=== PATIENT | female | born 1950 | race Caucasian/White ===

== ENCOUNTER 2016-12-09 09:51 | Outpatient (CLI) | payer MEDICARE, BC ==
[~2016-12-09] VITALS: Ht 165.1 cm; Wt 80.9 kg
[~2016-12-09 09:51] MED LIST: LEVOXYL0.125 MG PO; NOVOLOG 100U100 U/M1 SQ; TRESIBA FL100 UNIT/1 SQ; VITAMIN D31000 IU PO; ZESTRIL 5MG5 MG PO; ZOCOR 20MG20 MG PO
[2016-12-09 10:33] VITALS: BP 107/57; PULSE 80; TEMP 98.3
[2016-12-09] MEDS ORDERED: SYNTHROID0.112 MG/T PO (11:12)
== END 2016-12-09 11:20 | disposition home or self-care (01) ==
LOC: EUO 09:51
DX: M81.0 Age-related osteoporosis without current pathological fracture (principal)
CPT/HCPCS: J3489

== ENCOUNTER → 2017-06-04 | Outpatient (CLI) | payer MEDICARE, BC ==
[~2017-06-04] MED LIST changes: +SYNTHROID0.112 MG/T PO
== END ==
LOC: MC.RAD 10:01
DX: Z12.31 Encounter for screening mammogram for malignant neoplasm of breast (principal)

== ENCOUNTER 2017-12-24 14:56 | Outpatient (CLI) | payer MEDICARE, BC ==
[~2017-12-24] VITALS: Ht 165.1 cm; Wt 81.0 kg
[2017-12-24 15:22] VITALS: BP 116/62; PULSE 73; TEMP 98
[2017-12-24] MEDS ORDERED: PRILOSEC10 MG PO (15:22)
== END 2017-12-24 16:35 | disposition home or self-care (01) ==
LOC: EUO 14:56
DX: M81.0 Age-related osteoporosis without current pathological fracture (principal)
CPT/HCPCS: J3489

== ENCOUNTER → 2018-08-16 | Outpatient (CLI) | payer MEDICARE, BC ==
[~2018-08-16] MED LIST changes: +PRILOSEC10 MG PO
== END ==
LOC: MC.RAD 08-11 08:40
DX: Z12.31 Encounter for screening mammogram for malignant neoplasm of breast (principal)

== ENCOUNTER 2019-03-25 08:39 | Inpatient (IN) | payer MEDICARE, BC ==
[~2019-03-25] VITALS: Ht 165.1 cm; Wt 83.9 kg
[~2019-03-25 08:39] MED LIST changes: +CHERATUSSIN AC120 ML PO; +PRILOSEC 20MG20 MG PO; +SYNTHROID0.1 MG/TAB PO
[2019-07-04] VITALS (10 sets, daily range): BP systolic 94–139; BP diastolic 53–89; PULSE 64–78; TEMP 97.6–97.9
[2019-07-04] MEDS ORDERED: PRIL40 PO (06:28)
--- NOTE | 2019-07-04 09:45 | NUR ---
MAGALY met with the patient's , Amol the patient was in surgery to disucss a discharge plan. The patient lives in [place] with Amol. The patient has a walker, which she brought into the hospital and patient is independent with ADLs. The patient's PCP is Dr. Argueta and patient receives medications from [facility] or [facility] with no difficulties. The patient does not have advanced directives in the EMR. The patient is to return home with outpatient physical therapy at this time. manager creative services will continue to follow to ensure a safe discharge.
--- NOTE | 2019-07-04 10:15 | NUR ---
PATIENT BACK IN ROOM 328 POST OP LTK. LTK DRESSING IS CD&I WITH ACEWRAP. TEDS TO RLE. SCD'S TO BLE. POSITIVE PEDAL PULSES TO BLE. CABRERA TO DEPENDENT DRAINAGE WITH SMALL AMOUNTS OF CLEAR YELLOW URINE. IV FLUIDS INFUSING INTO RIGHT WRIST VIA PUMP. HEAD TO TOE ASSESSMENT WNL. VSS. NO C/O PAIN AT THIS TIME. AT BEDSIDE. CALL LIGHT IN REACH. BS 142. LIQUIDS AT BEDSIDE. NO C/O N/V.
--- NOTE | 2019-07-04 12:00 | NUR ---
PATIENT IS ABLE TO MOVE BLE AND IS NOW ASKING FOR PAIN MEDS. LUNCH AT BEDSIDE. GAVE PRN ROXICODONE, TWO TABS. ELEVATED LLE ABOVE LEVEL OF HEART AFTER LUNCH. WILL MONITOR.
--- NOTE | 2019-07-04 20:00 | NUR ---
Report received. 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 A&Ox3. Assessment complete. VS stable. IV to right hand with NS@75ml/hr. Plan of care discussed for pain control/HS meds/ambulation. Verbalizes understanding. SCDs/TEDs bilat. Dressing to left knee-bulky white/john bandage CDI. Fresh ice pack applied. Updated on contact with Ortho computer systems engineer on technol brace and positioning on side with pillow support. Denies questions or concerns. Call light in reach. Bed in low position/wheels locked. Will monitor.
--- NOTE | 2019-07-04 21:30 | NUR ---
Up to ambulate in vela. Ambulated approx 150 feet with stand by assist x2/gait belt/walker. Tolerated well.
[2019-07-05] VITALS (7 sets, daily range): BP systolic 101–147; BP diastolic 55–72; PULSE 73–87; TEMP 97.9–99.1
--- NOTE | 2019-07-05 00:10 | NUR ---
C/O pain to left knee-rating 7/10-described as throbbing. So given per dr oriana. Fresh ice pack applied.
--- NOTE | 2019-07-05 02:30 | NUR ---
Still rating pain 6/10-left knee-described as throbbing. Morphine given per dr order. Repositioned with pillow support/fresh ice pack
--- NOTE | 2019-07-05 04:00 | NUR ---
C/O pain to left knee-rating 6/10-described as throbbing. So given per dr gastelum. Repostioned with pillow support/fresh ice applied.
--- NOTE | 2019-07-05 06:45 | NUR ---
awake resting in bed, bedside shift report received from FÉLIX Ramos, breakfast delivered and patient is checking blood sugar and administering her own insulin per Dr. Liang
[2019-07-05 08:04] LABS: HEMATOCRIT 39.2 % (37.0-47.0)
--- NOTE | 2019-07-05 08:25 | NUR ---
c/o pain 01/10 and medicated with hydrocodone 7.5mg 2 tabs, is tearful at this time, sat up on side of bed and now lying back in bed, repositioned for comfort, encouraged to rest at this time to help get pain under control, will monitor
--- NOTE | 2019-07-05 09:02 | NUR ---
states pain is a little betterbut is up in her thigh now, c/o some nausea and medicated with zofran 4mg slow IV, rests with eyes closed and appears to doze while zofram being adminisered
--- NOTE | 2019-07-05 09:09 | NUR ---
Reported onto FÉLIX Ulrich. Shift assessment completed. Black catheter intact no leakage urine is clear yellow. Has SCD's to bilateral extremities and tedhose. C/O pain at 6 in left leg and nurse is aware gave pain meds. Has an john wrap on left leg and elevated on pillow with ice to left knee.
--- NOTE | 2019-07-05 09:22 | NUR ---
physical therapy in to work with patient, ambulating in vela with steady gait
--- NOTE | 2019-07-05 10:04 | NUR ---
9:45 john wrap/white bulky dressing removed from left knee and acquacel dressing applied 3.5x10in. Incision is CDI and well approximated with steri strips no reddness, drainage, or warmth noted.
--- NOTE | 2019-07-05 10:20 | NUR ---
resting in chair, states she is now feeling better, denies needs
--- NOTE | 2019-07-05 10:35 | NUR ---
Black catheter discontinued removed 9ml of water from ballon tip intact urine yellow and clear and pericare performed.
--- NOTE | 2019-07-05 10:45 | NUR ---
after dressing changed and GIORGIO hose placed on left leg and ridley removed she is now c/o increasing pain to left knee, medicated with roxicodone 10mg
--- NOTE | 2019-07-05 11:11 | NUR ---
Reported off to FÉLIX Ulrich
--- NOTE | 2019-07-05 13:20 | NUR ---
physical therapy was in and worked with patient, then back to bed and now appears to be sleeping, resp quiet and easy
--- NOTE | 2019-07-05 13:55 | NUR ---
awake now and requesting pain pills, stating she woke up and pain is increasing, medicated with hydrocodone 7.5mg 2 tabs
--- NOTE | 2019-07-05 14:55 | NUR ---
Initial vist; Initial visit; Patient and her thanked Labor Trainer for looking in on her and offering spiritual care.
--- NOTE | 2019-07-05 15:15 | NUR ---
assisted up to bathroom and voided qs, then ambulated out in the vela and then back to room
--- NOTE | 2019-07-05 16:43 | NUR ---
resting in bed visiting with a friend
--- NOTE | 2019-07-05 17:15 | NUR ---
sitting up in bed having supper, denies needs
--- NOTE | 2019-07-05 18:10 | NUR ---
had supper and tolerated well, c/o pain to left knee and medicated with roxicodone 10mg, assisted up to bathroom
--- NOTE | 2019-07-05 18:43 | NUR ---
bedside shift report given to FÉLIX Saldana
--- NOTE | 2019-07-05 20:30 | NUR ---
Pt. sitting up in bed at this time. Pt. is A&OX3, assessment complete. INT to rt. hand. Aquacell dressing CDI. Pt. reports pain at a 4 on pain scale at this time. Pt. would like pain med with evening meds. Will give per orders. Pt. denies further needs at this time. Call light within reach.
[2019-07-06 03:51] VITALS: BP 129/54; PULSE 90; TEMP 98.3
[2019-07-06 07:05] VITALS: BP 105/61; PULSE 82; TEMP 98.2
[2019-07-06 07:36] LABS: HEMOGLOBIN 11.6 g/dl (12.5-16.0)
[2019-07-06 07:38] LABS: HEMATOCRIT 35.6 % (37.0-47.0)
--- NOTE | 2019-07-06 07:46 | NUR ---
Reported onto FÉLIX Watters. Shift assessment completed and Acquacell bandages on left knee are CDI assisted patient to bathroom with minimal assist with walker urine is pale yellow and clear. Ate 100% of breakfast and drank 240ml.
--- NOTE | 2019-07-06 09:53 | NUR ---
INT removed with tip intact pressure and bandaid applied.
[2019-07-06 11:16] VITALS: BP 101/58; PULSE 84; TEMP 97.6
--- NOTE | 2019-07-06 11:18 | NUR ---
Reported off to FÉLIX Watters INT was discontinued at 9:53.
[2019-07-06] MEDS ORDERED: ASPI325T6 PO (13:22)
[2019-07-06] MEDS ORDERED: NORCO 325 MG-7.1 TAB PO (13:23)
[2019-07-06] MEDS ORDERED: TYLENOL 500MG500 MG PO (13:24)
[2019-07-06] MEDS ORDERED: ROXICODONE 55 MG/TAB PO (13:24)
[2019-07-06] MEDS ORDERED: COLACE 100100 MG/CAP PO (13:25)
--- NOTE | 2019-07-06 14:51 | NUR ---
discharge instructions reviewed with patient and family. questions solicited and answered. pt taken to front by wheel chair and staff.
== END 2019-07-06 14:53 | disposition home or self-care (01) | DRG 470 ==
LOC: JCC 06-06 07:30
PROVIDERS: ADMIT Orthopaedic Surgery
PROC: 0SRD0J9 Replacement of Left Knee Joint with Synthetic Substitute, Cemented, Open Approach (ICD-10-PCS; principal; 2019-07-04 08:00)
DX: M17.12 Unilateral primary osteoarthritis, left knee (principal); E11.9 Type 2 diabetes mellitus without complications; I10 Essential (primary) hypertension; M06.9 Rheumatoid arthritis, unspecified; M81.0 Age-related osteoporosis without current pathological fracture; K21.9 Gastro-esophageal reflux disease without esophagitis; Z96.649 Presence of unspecified artificial hip joint; Z88.3 Allergy status to other anti-infective agents; Z88.8 Allergy status to other drugs, medicaments and biological substances
CPT/HCPCS: A4314; A9284; C1776; J0690; J2250; J2270; J2405; J2704; J7030

== ENCOUNTER 2019-08-18 15:36 | Inpatient (IN) | payer MEDICARE, BC ==
[~2019-08-18] VITALS: Ht 165.1 cm; Wt 77.2 kg
[~2019-08-18 15:36] MED LIST changes: +ASPI325T6 PO; +COLACE 100100 MG/CAP PO; +NORCO 325 MG-7.1 TAB PO; +PRIL40 PO; +ROXICODONE 55 MG/TAB PO; +TYLENOL 500MG500 MG PO
[2019-10-04] VITALS (10 sets, daily range): BP systolic 98–150; BP diastolic 55–85; PULSE 56–80; TEMP 97.9–98
--- NOTE | 2019-10-04 13:08 | NUR ---
PT TO ROOM 331 PER BED WITH REPORT FROM MATT HEARD PACU @1300. PT IS A/O X3, VSS, LUNGS CTA, BOWEL SOUNDS HYPO. DRESSING TO LEFT KNEE CDI WITH OCCLUSIVE DRESSING INPLACE. SCDS AND TEDS BILATERALLY. IV TO PUMP. ICE WATER PER PT REQUEST.
--- NOTE | 2019-10-04 15:38 | NUR ---
MAGALY met with the patient and her , Amol (ph#[phone]), to discuss discharge plan. The patient lives in [place] with her . She reports independence with ADLs and has a walker. The patient's PCP is Dr. January Argueta and she receives her medications at [facility]. She reports no difficulties obtaining her meds. The patient does not have advanced directives in EMR, but her states that she does have them completed and that her PCP's office should have a copy. He states that he is the patient's DPOA-HC. MAGALY attempted to contact Dr. Argueta's office to request a copy. MAGALY left them a voicemail. The patient plans to return home with her and receive outpatient therapy in [place] upon discharge. No additional needs at this time.
--- NOTE | 2019-10-04 17:13 | NUR ---
PT UP TO BR WITH SBA X1 VOIDED AND RETURNED TO BED.
--- NOTE | 2019-10-04 23:17 | NUR ---
Patient having difficulty with pain control post-operatively. Oxycodone, morphine, and tramadol have been given with little relief. Patient has not scored pain below an 8/10. Patient is currently resting in bed with eyes open, but is not crying at this time. Will continue to provide pain relief. Ice to right knee. Ambulates with SBA to toilet. Patient self administers insulin d/t having an implanted glucose monitor. Physician aware and okay with this. Bulky dressing present to right knee. IVF continue to left forearm. Will continue to monitor patient.
[2019-10-05 05:08] VITALS: BP 153/70; PULSE 82; TEMP 98
--- NOTE | 2019-10-05 07:27 | NUR ---
PT UP TO BR THEN BACK TO BED FOR BREAKFAST. SITTING ON SIDE OF BED FOR BREAKFAST. REPORT FROM GABY HEARD.
[2019-10-05 07:30] LABS: HEMATOCRIT 39.6 % (37.0-47.0); HEMOGLOBIN 12.7 g/dl (12.5-16.0)
[2019-10-05 08:32] VITALS: BP 138/69; PULSE 86; TEMP 97.6
--- NOTE | 2019-10-05 09:58 | NUR ---
PT OUT TO [facility] FOR THEARAPY. AMBULATED WITH STEADY GAIT. THEN RETURNED TO ROOM WITH SBA.
[2019-10-05 12:11] VITALS: BP 118/57; PULSE 80; TEMP 97.5
--- NOTE | 2019-10-05 12:58 | NUR ---
First visit from the equipment washer. No needs right now.
--- NOTE | 2019-10-05 14:38 | NUR ---
PT CALLING FOR MORE PAIN MEDICATION. EXPLAINED THAT WE ARE ALTERNATING BETWEEN NORCO AND OXYCODONE,
--- NOTE | 2019-10-05 14:39 | NUR ---
PAIN MEDS GIVEN AT 1200 AND 1400 2 TABS EACH TIME.
[2019-10-05 17:43] VITALS: BP 122/56; PULSE 81; TEMP 97.4
--- NOTE | 2019-10-05 20:30 | NUR ---
Called stating IV site was leaking. INTd-tried to flush but leaked around cath. DCd at this time-cath intact. No s/s of redness or swelling.
[2019-10-05 20:55] VITALS: BP 128/58; PULSE 72; TEMP 97.9
--- NOTE | 2019-10-05 22:00 | NUR ---
Called by PCT about midline abdominal dressing being saturated and soiled with stool. Gauze and 4x4s removed-distal portion of midline dressing saturated with serosanguineous fluid. All luigi intact except third from bottom. Incision convered with ABD x1/medipore tape. Tolerated well.
--- NOTE | 2019-10-06 01:02 | NUR ---
Pt called out and requested pain medication. Pain was assesed and pt stated that she was at a 8 out of 10 in pain. Pt was given pain medication at this time. Pt ambulated to the bathroom and back to bed. Pt is drinking fluids and has no other complaints at this time. Will reassess pain and monitor for any other concerns that she may have. Call light is within reach and bed is in lowest postion.
[2019-10-06 03:51] VITALS: BP 118/59; PULSE 72; TEMP 97.7
--- NOTE | 2019-10-06 03:53 | NUR ---
Pt is currently lying in bed sleeping. Call light is within reach. Her CPAP is in use at this time.
--- NOTE | 2019-10-06 05:53 | NUR ---
Pt currently lying in bed. Pt ambulated to the restroom. Pt call light is within reach and bed is in lowest position. Pt has no other concerns at this time.
[2019-10-06] MEDS ORDERED: NORCO 325 MG-7.1 TAB PO (06:40)
[2019-10-06] MEDS ORDERED: ASPI325T6 PO (06:40)
--- NOTE | 2019-10-06 06:40 | NUR ---
Reported on to primary RN
[2019-10-06] MEDS ORDERED: SENNA-S 50 MG-81 TAB PO (06:41)
[2019-10-06] MEDS ORDERED: ROXICODONE 55 MG/TAB PO (06:41)
[2019-10-06 07:11] VITALS: BP 138/57; PULSE 77; TEMP 98
--- NOTE | 2019-10-06 07:29 | NUR ---
Assessment completed. No IV site. Mild edema noted to R lower extremity. Pt. reported 4/10 pain. Pt. administered own insulin. SCDs and Teds on. Pt. sitting in bed eating breakfast with call light in reach. Will continue to monitor.
--- NOTE | 2019-10-06 07:30 | NUR ---
PATIENT TRYING TO REFUSE OT AND SHOWER STATING, "THE PHYSICIAN TOLD HER SHE DIDN'T HAVE TO." ORTHO CONTACTED, AND THIS WAS NOT THE CASE. OT IS ORDERED FOR EVAL AND TREAT. PATIENT TO SHOWER AND WORK WITH OT BEFORE DISCHARGE.
--- NOTE | 2019-10-06 08:00 | NUR ---
PATIENT IS A&O. VSS. RTK DRESSING IS CD&I WITH ACEWRAP. TEDS TO LLE, SCD'S TO BLE. POSITIVE PEDAL PULSES TO BLE. HEAD TO TOE ASSESSMENT COMPLETE. STUDENT NURSE WORKING WITH PATIENT TODAY, SEE STUDENT NOTES.
--- NOTE | 2019-10-06 08:20 | NUR ---
Pt. reported 7/10 pain at this time and requested pain medication. Pt. was also preparing to participate in PT/OT and was wanting pain medication prior. Medication was administered at this time. Will continue to monitor.
--- NOTE | 2019-10-06 10:00 | NUR ---
Dressing to R knee changed after shower. Steri-strips applied to incision and Airstrip applied over top of incision. Incison appeared CDI at this time. No bleeding noted. Will continue to monitor.
--- NOTE | 2019-10-06 10:15 | NUR ---
Pt. reported 8/10 pain post PT/OT working with her. Pain medication was given at this time. New bag of ice placed on knee with knee elevated. Call light in reach. Will continue to monitor.
[2019-10-06 12:06] VITALS: BP 140/76; PULSE 76; TEMP 97.5
--- NOTE | 2019-10-06 13:37 | NUR ---
Reported off to primary RNLuz Marina.
--- NOTE | 2019-10-06 15:20 | NUR ---
PATIENT DISCHARGING HOME VIA WC TO PERSONAL VEHICLE WITH . GAVE DISCHARGE INSTRUCTIONS, PRESCRIPTIONS, AND FOLLOW UP APT. ANSWERED ALL QUESTIONS/CONCERNS. PERSONAL BELONGINGS ARE PACKED AND SENT WITH . PATIENT DISCHARGED.
== END 2019-10-06 15:20 | disposition home or self-care (01) | DRG 470 ==
LOC: JCC 10-04 07:52
PROVIDERS: ADMIT Orthopaedic Surgery
PROC: 0SRC0J9 Replacement of Right Knee Joint with Synthetic Substitute, Cemented, Open Approach (ICD-10-PCS; principal; 2019-10-04 10:30)
DX: M17.11 Unilateral primary osteoarthritis, right knee (principal); G47.00 Insomnia, unspecified; I10 Essential (primary) hypertension; E11.9 Type 2 diabetes mellitus without complications; E78.00 Pure hypercholesterolemia, unspecified; M81.0 Age-related osteoporosis without current pathological fracture; M06.9 Rheumatoid arthritis, unspecified; E89.0 Postprocedural hypothyroidism; Z90.49 Acquired absence of other specified parts of digestive tract
CPT/HCPCS: A9284; C1776; J0690; J1100; J2250; J2270; J2405; J2704; J7030

== ENCOUNTER → 2020-03-01 | Outpatient (CLI) | payer MEDICARE, BC ==
[~2020-03-01] MED LIST changes: +SENNA-S 50 MG-81 TAB PO
== END ==
LOC: MC.RAD 16:40
DX: Z12.31 Encounter for screening mammogram for malignant neoplasm of breast (principal)

== ENCOUNTER 2020-03-13 15:52 | Outpatient (CLI) | payer MEDICARE, BC ==
[2020-03-13 16:59] VITALS: BP 97/53; PULSE 73; TEMP 98.4
[2020-03-13] MEDS ORDERED: ZESTRIL2.5 MG PO (17:15)
[2020-03-13] MEDS ORDERED: TRESIBA100 UNIT/1 SQ (17:16)
[2020-03-13] MEDS ORDERED: SYNTHROID0.1 MG/TAB PO (17:16)
[2020-03-13] MEDS ORDERED: HUMALOG100 U/ML SQ (17:16)
[2020-03-13] MEDS ORDERED: ZOCOR 20MG20 MG PO (17:17)
[2020-03-13] MEDS ORDERED: PRILOSEC 20MG20 MG PO (17:18)
== END 2020-03-13 17:25 | disposition home or self-care (01) ==
LOC: EUO 15:52
DX: M81.0 Age-related osteoporosis without current pathological fracture (principal)
CPT/HCPCS: J3489

== ENCOUNTER 2021-04-02 15:12 | Outpatient (CLI) | payer MEDICARE, BC ==
[~2021-04-02] VITALS: Ht 165.1 cm; Wt 85.1 kg
[~2021-04-02 15:12] MED LIST changes: +HUMALOG100 U/ML SQ; +TRESIBA100 UNIT/1 SQ; +ZESTRIL2.5 MG PO
[2021-04-02] MEDS ORDERED: NOVOLOG 100U100 U/M1 SQ (15:32)
[2021-04-02 15:48] VITALS: BP 99/59; PULSE 71; TEMP 98.6
== END 2021-04-02 16:00 | disposition home or self-care (01) ==
LOC: EUO 15:12
DX: M81.0 Age-related osteoporosis without current pathological fracture (principal)
CPT/HCPCS: J3489

== ENCOUNTER → 2022-03-28 | Outpatient (CLI) | payer MEDICARE, BC | LOC: MC.RAD 08:44 | DX: N63.10 Unspecified lump in the right breast, unspecified quadrant (principal) ==

== ENCOUNTER → 2022-04-02 | Outpatient (CLI) | payer MEDICARE, BC | LOC: MC.RAD 09:46 | DX: N63.11 Unspecified lump in the right breast, upper outer quadrant (principal) | CPT/HCPCS: A4648 ==

== ENCOUNTER 2022-06-05 07:31 | Day surgery (SDC) | payer MEDICARE, BC ==
[2022-06-05] VITALS (7 sets, daily range): BP systolic 121–143; BP diastolic 61–76; PULSE 65–78; TEMP 97.6–98.1
[~2022-06-05] VITALS: Ht 165.1 cm; Wt 85.0 kg
[~2022-06-05 07:31] MED LIST changes: +NORCO 325 MG-51 TAB PO; +SYNTHROID0.088 MG/T PO; +VITAMIN D31000 I1 PO
[2022-06-05] MEDS ORDERED: NORCO 325 MG-51 TAB PO (09:35)
--- NOTE | 2022-06-05 10:15 | NUR ---
Patient returns to room 6 per cart from PACU accompanied by Yun RN and patient is awake and alert. IV fluids infusing and site is free of redness or swelling. SAMANTHA drain to compression with scant pink tinged serous drainage noted in tubing. IV fluids infusing and site is free of redness or swelling. Siderails up x2 and call light in reach. Allowed to rest.
--- NOTE | 2022-06-05 10:30 | NUR ---
Sipping on Sprite. Denies need for pain medication.
--- NOTE | 2022-06-05 10:45 | NUR ---
Eating muffin and sipping on Sprite. Room air sats 98%.
--- NOTE | 2022-06-05 11:00 | NUR ---
Scant pink tinged serous drainage noted in SAMANTHA drain to bulb suction. Oxygen removed and sats 96% on room air.
--- NOTE | 2022-06-05 11:15 | NUR ---
Continues to deny pain or nausea. Given instructions on draining and recording SAMANTHA drain. Provided flow sheet to record. Follow up appointment made and provided date and time.
--- NOTE | 2022-06-05 11:43 | NUR ---
IV discontinued and patient assisted with dressing.
--- NOTE | 2022-06-05 12:12 | NUR ---
Dismissal instructions reviewed and signed. Patient dismisssed to home driven by spouse and taken to private vehicle per wheelchair and assisted into car.
== END 2022-06-05 12:12 | disposition home or self-care (01) ==
LOC: SDCO 07:31
DX: L76.34 Postprocedural seroma of skin and subcutaneous tissue following other procedure (principal); C50.411 Malignant neoplasm of upper-outer quadrant of right female breast; Y84.8 Other medical procedures as the cause of abnormal reaction of the patient, or of later complication, without mention of misadventure at the time of the procedure
CPT/HCPCS: J0690; J1100; J1170; J2405; J2704; J3010; J7120

== ENCOUNTER → 2024-03-24 | Outpatient (CLI) | payer MEDICARE, BC ==
[~2024-03-24] MED LIST changes: +ARIMIDEX1 MG PO; +MONODOX100 PO
== END ==
LOC: MC.RAD 06:03
DX: Z12.31 Encounter for screening mammogram for malignant neoplasm of breast (principal)

== ENCOUNTER 2024-05-05 11:36 | Observation (INO) | payer MEDICARE, BC ==
[~2024-05-05] VITALS: Ht 162.6 cm; Wt 86.5 kg
[~2024-05-05 11:36] MED LIST changes: +PRINIVIL2.5 MG PO; -ZESTRIL2.5 MG PO
[2024-05-05] MEDS ORDERED: Ondansetron 4 MG/2 ML VIAL IV ONE ×2 (12:00→13:30)
[2024-05-05] MEDS ORDERED: NS 1,000 ML IV ONE (12:00)
[2024-05-05 12:21] LABS: BASO # 0.1 K/mm3 (0.0-0.2); BASO % 0.5 % (0.0-2.0); EOS # 0.2 K/mm3 (0.0-0.7); EOS % 1.5 % (0.0-4.0); GRAN # 12.4 K/mm3 (1.4-6.5); GRAN % 85.4 % (42.2-75.2); HEMATOCRIT 43.1 % (37.0-47.0); HEMOGLOBIN 14.4 g/dl (12.5-16.0); LYMPH % 6.8 % (20.0-51.0); MEAN CELL VOLUME 97 fl (80.0-100.0); MEAN CORPUSCULAR HEMOGLOBIN 32 pg (27-31); MEAN CORPUSCULAR HGB CONC 33 g/dl (33.0-37.0); MEAN PLATELET VOLUME 10.8 fl (7.4-10.4); MONO # 0.6 K/mm3 (0.1-0.6); MONO % 4.4 % (1.7-9.3); PLATELET COUNT 211 K/mm3 (130-400); RED BLOOD COUNT 4.45 M/mm3 (4.10-5.30); REDCELL DISTRIBUTION WIDTH-CV 14.2 % (11.5-14.5)
[2024-05-05 12:36] LABS: ACETONE,SERUM SMALL
[2024-05-05 12:40] LABS: ALANINE AMINOTRANSFERASE 14 U/L (0-55); ALKALINE PHOSPHATASE 73 U/L (40-150); ANION GAP 16 mmol/L (7-16); AST,SGOT 18 U/L (5-34); BILIRUBIN,TOTAL 1.6 mg/dL (0.2-1.2); BLOOD UREA NITROGEN 26 mg/dL (10-20); CALCIUM 9.6 mg/dL (8.4-10.2); CHLORIDE 99 mEq/L (98-107); CREATININE, serum 1.52 mg/dL (0.57-1.11); POTASSIUM 5.3 mEq/L (3.5-4.5); SODIUM 135 mEq/L (136-145)
[2024-05-05 12:56] LABS: GLUCOSE 603 mg/dL (70-99)
[2024-05-05 13:29] LABS: COLLECTION METHOD CLEAN CATCH
[2024-05-05] MEDS ORDERED: Insulin Regular Human (NovoLIN R/HumuLIN R) IV ONE (13:30)
[2024-05-05 13:32] LABS: PH 5.5 (5.0-8.5); URINE APPEARANCE CLEAR (CLEAR/HAZY); URINE BLOOD NEGATIVE (NEGATIVE); URINE COLOR YELLOW (YELLOW); URINE GLUCOSE 3+ (NEGATIVE); URINE KETONE 1+ (NEGATIVE); URINE NITRATE NEGATIVE (NEGATIVE); URINE PROTEIN(semi-quant) NEGATIVE (NEGATIVE)
[2024-05-05] MEDS ORDERED: Docusate Sodium 100 MG CAP PO PRN (13:45)
[2024-05-05] MEDS ORDERED: Ondansetron 4 MG/2 ML VIAL IV PRN (13:45)
[2024-05-05] MEDS ORDERED: NS 1,000 ML IV SCH (13:45)
[2024-05-05] MEDS ORDERED: Polyethylene Glycol 3350 17 GM PDS PO PRN (13:45)
[2024-05-05] MEDS ORDERED: Acetaminophen 325 MG TAB PO PRN (13:45)
[2024-05-05 15:26] LABS: CALCIUM 9.4 mg/dL (8.4-10.2); CREATININE, serum 1.39 mg/dL (0.57-1.11); POTASSIUM 4.7 mEq/L (3.5-4.5)
[2024-05-05] MEDS ORDERED: Heparin 5,000 UNITS/ML 1 ML VIAL SQ SCH (16:00)
[2024-05-05] MEDS ORDERED: Insulin Lispro (HumaLOG) SQ SCH ×2 (16:00→21:00)
[2024-05-05] MEDS ORDERED: Dextrose 50% Water 25 GM/50 ML SYRINGE IV PRN (16:15)
[2024-05-05] MEDS ORDERED: Dextrose (Glucose) 15 GM (4 x 3.75 GM) Chewable TABLET PACK PO PRN (16:15)
[2024-05-05] MEDS ORDERED: Glucagon 1 MG VIAL IM PRN (16:15)
--- NOTE | 2024-05-05 16:25 | NUR ---
PATIENT ARRIVE TO FLOOR AT 1530. ADMISSION, ASSESSMENT AND MED RED COMLETED. PATIENT ARRIVED TO FLOOR W/ IV TO LEFT AC, NS INFUSING AT 100ML/HR AND MEDS GIVEN ORDERED SEE EMAR. PATIENT HAS NO REQUESTAT THIS TIME. CALL LIGHT IN REACH
[2024-05-05 16:28] VITALS: BP 119/78; PULSE 78; TEMP 97.7
[2024-05-05 16:37] VITALS: BP_SYST 119
[2024-05-05 19:12] LABS: CALCIUM 9.2 mg/dL (8.4-10.2); CREATININE, serum 1.21 mg/dL (0.57-1.11); POTASSIUM 4.1 mEq/L (3.5-4.5)
[2024-05-05 19:15] VITALS: BP 133/83; PULSE 83; TEMP 98.2
--- NOTE | 2024-05-05 19:36 | NUR ---
HOSPITALIST GUILLAUME CHILDERS APRN CALLED PRIMARY NURSE TO INFORM HER THAT PATIENT WOULD BE ACHS ACCU CHECKS, Q4 BMP LAB, CT CHEST PE, AND TO CALL WITH RESULTS.
[2024-05-05 19:51] VITALS: BP_SYST 133
--- NOTE | 2024-05-05 20:01 | NUR ---
PATIENT SITTING UP IN BED LOOKING AT INSULING PUMP WITH FAMILY AT BEDSIDE WITH TV ON WITH NO ACUTE DISTRESS NOTED. PATIENT STATES TO PRIMARY NURSE " MY BLOOD SUGAR IS GOING UP BECAUSE I ATE AND WHEN AM I GOING TO GET INSULIN." PRIMARY NURSE INFORMED PATIENT ABOUT DR. PRICE'S ORDERS. ALL QUESTIONS ANSWERED. PATIENT INQUIRED ABOUT HOME ARIMIDEX. PATIENT VERBALIZED UNDERSTANDING THAT MEDICATION WOULD BE GIVEN PER HOSPITALIST'S ORDER. TELEMETRY INTACT. NS INFUSING INTO LEFT AC WITH NO COMPLICATIONS NOTED. ASSESSMENT AND MEDICATION ADMINISTRATION COMPLETED AT THIS TIME. PATIENT DENIES ANY OTHER NEEDS. PATIENT ATE 80% OF DINNER TRAY AND WAS REMOVED FROM ROOM. BED IN LOW POSITION WITH WHEELS LOCKED WITH RAILS UP X2 AND CALL LIGHT WITHIN REACH.
--- NOTE | 2024-05-05 20:23 | NUR ---
HOSPITALIST CALLED FOR PATIENT REQUEST FOR HOME ARIMIDEX. ORDER RECIEVED FROM GUILLAUME CHILDERS APRN TO GIVEN DOSE TONIGHT AND AT 1800 DAILY.
[2024-05-05] MEDS ORDERED: Simvastatin 20 MG **** subs to Atorvastatin 10 MG PO SCH (21:00)
[2024-05-05] MEDS ORDERED: Anastrozole 1 MG TAB PO SCH (21:00)
[2024-05-05] MEDS ORDERED: Atorvastatin 10 MG TAB PO SCH (21:00)
[2024-05-05] MEDS ORDERED: Insulin Glargine-ygfn (Lantus) SQ SCH (21:00)
--- NOTE | 2024-05-05 21:04 | NUR ---
RADIOLOGY CALLED AND NOTIFIED OF PATIENT CT CHEST PE ORDER. PRIMARY NURSE TALKED TO WENDY. CREATININE DOWN TO 1.21.
--- NOTE | 2024-05-05 21:55 | NUR ---
PATIENT DOWN TO CT VIA WHEELCHAIR AT THIS TIME.
--- NOTE | 2024-05-05 22:20 | NUR ---
PATIENT BACK TO ROOM VIA WHEELCHAIR FROM CT.
[2024-05-05] MEDS ORDERED: Iohexol 300 - 100 ML VIAL IV ONE (22:22)
--- NOTE | 2024-05-05 22:23 | NUR ---
HOSPITALIST GUILLAUME NOTIFIED OF CT CHEST PE HAVEN BEEN COMPLETED. NO NEW ORDERS.
[2024-05-05] MEDS ORDERED: NS 50 ML IV SCH (22:24)
[2024-05-05 22:30] LABS: CALCIUM 8.6 mg/dL (8.4-10.2); CREATININE, serum 1.11 mg/dL (0.57-1.11); POTASSIUM 4.1 mEq/L (3.5-4.5)
[2024-05-05 23:26] VITALS: BP 98/55; PULSE 70; TEMP 98.4
[2024-05-06] VITALS (7 sets, daily range): BP systolic 98–133; BP diastolic 66–81; PULSE 74–83; TEMP 97.8–98.5
[2024-05-06 02:51] LABS: CALCIUM 8.5 mg/dL (8.4-10.2); CREATININE, serum 1.07 mg/dL (0.57-1.11); POTASSIUM 4.3 mEq/L (3.5-4.5)
[2024-05-06] MEDS ORDERED: Omeprazole 20 MG **** subs to Pantoprazole 40 MG PO SCH (07:00)
--- NOTE | 2024-05-06 07:52 | NUR ---
Patient resting in bed, awake, alert and oriented, getting fluids per orders. Report received from Jaxson HEARD. PT asking for CT results, shift foreman nurse explained.
[2024-05-06 08:05] LABS: ALBUMIN 3.4 g/dL (3.4-4.8); BILIRUBIN,TOTAL 1.8 mg/dL (0.2-1.2); CALCIUM 8.6 mg/dL (8.4-10.2); CREATININE, serum 1.04 mg/dL (0.57-1.11); POTASSIUM 4.2 mEq/L (3.5-4.5); TOTAL PROTEIN 5.8 g/dl (6.2-8.1)
[2024-05-06 08:51] LABS: BASO # 0.1 K/mm3 (0.0-0.2); BASO % 0.6 % (0.0-2.0); EOS # 0.2 K/mm3 (0.0-0.7); EOS % 1.6 % (0.0-4.0); GRAN # 10.8 K/mm3 (1.4-6.5); GRAN % 78.5 % (42.2-75.2); LYMPH # 1.6 K/mm3 (1.2-3.4); LYMPH % 11.8 % (20.0-51.0); MEAN CELL VOLUME 96 fl (80.0-100.0); MEAN CORPUSCULAR HGB CONC 34 g/dl (33.0-37.0); MEAN PLATELET VOLUME 11.1 fl (7.4-10.4); MONO # 0.9 K/mm3 (0.1-0.6); MONO % 6.9 % (1.7-9.3); PLATELET COUNT 182 K/mm3 (130-400); RED BLOOD COUNT 3.84 M/mm3 (4.10-5.30); REDCELL DISTRIBUTION WIDTH-CV 14.3 % (11.5-14.5)
[2024-05-06 08:55] LABS: HEMATOCRIT 36.7 % (37.0-47.0); HEMOGLOBIN 12.3 g/dl (12.5-16.0); MEAN CORPUSCULAR HEMOGLOBIN 32 pg (27-31)
[2024-05-06] MEDS ORDERED: Anastrozole 1 MG TAB PO SCH (09:00)
--- NOTE | 2024-05-06 09:15 | NUR ---
Patient is resting in bed, alert and oriented x 4, denies any chest pain or any other discomfort. Assessment completed, meds given. Receiving fluids per orders. No further needs at this time. Call light within reach.
--- NOTE | 2024-05-06 09:16 | NUR ---
speeder worker met with patient to discuss discharge planning. Patient lives in [place] with her , Amol, P# [phone]. Carol (daughter) is listed as secondary contact, P# [phone]. PCP is Dr. Galvez, Pharmacy is [facility]. No issues affording medications as patient reports to have a prescription drug plan. Insurance is Medicare A and B and BCBS is secondary. DPOA- is on file listing Amol and Carol, patient reports this is still accurate. Patient has a cane and walker at home but does not utilize them. Patient reports to be independent with all ADLS and is able to transport to and from appointments. Patient would like to return home at time of discharge. Discharge plan: Home
[2024-05-06] MEDS ORDERED: INSULIN GL100 UNIT/2 SQ (09:29)
[2024-05-06] MEDS ORDERED: INSULIN PEN NE1 EAC1 MC (09:30)
[2024-05-06] MEDS ORDERED: INSULIN AS100 UNIT/3 SQ (09:37)
[2024-05-06] MEDS ORDERED: TRESIBA FL100 UNIT/1 SQ (10:07)
[2024-05-06 10:33] LABS: CALCIUM 8.5 mg/dL (8.4-10.2); POTASSIUM 3.9 mEq/L (3.5-4.5)
[2024-05-06 10:35] LABS: CHOLESTEROL RISK RATIO 2.2
--- NOTE | 2024-05-06 13:29 | NUR ---
D: Guest Services Attendant stopped by room on rounds A: Pt was resting and content. Pt has no needs right now. P: Guest Services Attendant informed pt that if she needed anything from the trim sawyer area to let her nurse know. Guest Services Attendant will follow up as needed.
--- NOTE | 2024-05-06 13:53 | NUR ---
Patient was provided with discharge information. Questions about his diabetes medications answererd. Dr. Rodriguez helped providing more detailed information. Telemetry and IV access were discontinued.
== END 2024-05-06 13:50 | disposition home or self-care (01) ==
LOC: COL.ER 11:36 → MEDICAL 13:27
PROVIDERS: Nurse Practitioner; ADMIT Hospitalist
DX: E11.65 Type 2 diabetes mellitus with hyperglycemia (principal); E11.00 Type 2 diabetes mellitus with hyperosmolarity without nonketotic hyperglycemic-hyperosmolar coma (NKHHC); N17.9 Acute kidney failure, unspecified; D72.829 Elevated white blood cell count, unspecified; E87.5 Hyperkalemia; G89.29 Other chronic pain; M54.9 Dorsalgia, unspecified; E80.7 Disorder of bilirubin metabolism, unspecified; I10 Essential (primary) hypertension; E78.5 Hyperlipidemia, unspecified; K21.9 Gastro-esophageal reflux disease without esophagitis; E03.9 Hypothyroidism, unspecified; K44.9 Diaphragmatic hernia without obstruction or gangrene; C50.919 Malignant neoplasm of unspecified site of unspecified female breast; Z79.899 Other long term (current) drug therapy; Z92.3 Personal history of irradiation; Z79.4 Long term (current) use of insulin; Z79.890 Hormone replacement therapy; Z98.890 Other specified postprocedural states
CPT/HCPCS: G0378; J1644; J1815; J2405; J7030; Q9967